=== PATIENT | male | born 1965 | race Caucasian/White ===

== ENCOUNTER 2018-10-30 09:29 | Emergency (ER) | payer MEDICAID, OTHER ==
[~2018-10-30] VITALS: Ht 177.8 cm; Wt 70.8 kg
[2018-10-30] MEDS ORDERED: FLUORESCEIN SODIUM OPHTH 1 EA STRIP ONE (09:41)
[2018-10-30] MEDS ORDERED: TETRACAINE HCL/PF 0.5% UD 2 ML BOTTLE ONE (09:41)
--- NOTE | 2018-10-30 10:54 | NUR ---
PT. VERBALIZED UNDERSTANDING OF AFTERCARE INSTRUCTIONS.Patient discharged to home in stable condition. Written and verbal after care instructions given. Patient verbalizes understanding of instruction.
[2018-10-30 10:56] VITALS: BP 134/77
[2018-10-30] MEDS ORDERED: GENTAMICIN OPTH SOLN 0.3% 5 ML BOTTLE OP ONE (11:00)
== END 2018-10-30 10:56 | disposition home or self-care (01) ==
LOC: ER 09:30
DX: T15.81XA Foreign body in other and multiple parts of external eye, right eye, initial encounter (principal); H16.9 Unspecified keratitis; W45.8XXA Other foreign body or object entering through skin, initial encounter; Y93.89 Activity, other specified; Y92.89 Other specified places as the place of occurrence of the external cause; Y99.8 Other external cause status

== ENCOUNTER 2025-07-19 15:33 | Emergency (ER) | payer OTHER ==
[~2025-07-19] VITALS: Ht 170.2 cm; Wt 78.0 kg
[2025-07-19] MEDS ORDERED: ONDANSETRON HCL/PF 4 MG/2 ML VIAL ONE (15:53)
[2025-07-19] MEDS: ONDANSETRON HCL/PF 4 MG/2 ML VIAL IVP ONE (16:47)
[2025-07-19] MEDS: IV NS 0.9% 1,000 ML BAG IV ONE (16:47)
[2025-07-19 16:51] LABS: PLATELET COUNT (AUTO) 162 K/uL (150-450); RED BLOOD CELL COUNT(AUTO) 4.71 MIL/uL (4.5-6.0); RED CELL DISTRIBUTION WIDTH 13.5 % (11.5-15.0); WHITE BLOOD COUNT (AUTO) 6.5 K/uL (4.3-11.0)
[2025-07-19 16:57] LABS: CALCIUM, SERUM 9.1 mg/dL (8.5-10.1); CREATININE 1.0 mg/dL (0.6-1.3); SODIUM SERUM 139 mmol/L (136-145); UREA NITROGEN, BLOOD 17 mg/dL (7-18)
[2025-07-19] MEDS ORDERED: ONDA4TAB11 PO (17:16)
[2025-07-19 17:47] VITALS: BP 147/93; TEMP 97.8; O2SAT 98
== END 2025-07-19 17:48 | disposition home or self-care (01) ==
LOC: ER 15:58
DX: R53.1 Weakness (principal); R11.2 Nausea with vomiting, unspecified; R55 Syncope and collapse
CPT/HCPCS: 99285; 96374; 71045; 96361; 93005; 85025; 80048; 36415; 84484 ×2; J2405

== ENCOUNTER 2025-08-26 13:03 | Emergency (ER) | payer OTHER ==
[~2025-08-26] VITALS: Ht 172.7 cm; Wt 77.1 kg
[~2025-08-26 13:03] MED LIST: ONDA4TAB11 PO
[2025-08-26 13:16] VITALS: BP 155/82; TEMP 98
[2025-08-26] MEDS ORDERED: OFLO5DRO5 LEFT EAR (13:25)
[2025-08-26 13:42] VITALS: O2SAT 96
== END 2025-08-26 13:42 | disposition home or self-care (01) ==
LOC: ER 13:15
DX: H60.92 Unspecified otitis externa, left ear (principal); I10 Essential (primary) hypertension